=== PATIENT | male | born 1970 | race Caucasian/White ===

== ENCOUNTER 2016-09-11 12:49 | Emergency (ER) | payer MEDICAID ==
[2016-09-11] MEDS ORDERED: Naloxone 0.4 mg/ml Inj (Adult) SC STA (13:13)
--- NOTE | 2016-09-11 13:45 | C.PDOC ---
History Of Present Illness Pt was BIBEMS due to public intoxication. Pt admits to snorting Heroin and drinking alcohol. Time Seen by Provider: 09/11/16 13:07 Chief Complaint (Nursing): Substance Abuse History Per: Patient, EMS Onset/Duration Of Symptoms: Unknown (today) Current Symptoms Are (Timing): Still Present Suicide/Self Injury Attempted (Context): None Modifying Factor(s): Alcohol, Narcotics Severity: Mild Additional History Per: Prior Records Past Medical History Reviewed: Historical Data, Nursing Documentation, Vital Signs Vital Signs: Last Vital Signs Temp 98.1 F 09/11/16 13:50 Pulse 105 H 09/11/16 13:50 Resp 18 09/11/16 13:50 BP 143/94 H 09/11/16 13:50 Pulse Ox 97 09/11/16 13:50 - Medical History PMH: Asthma Family History: States: Unknown Family Hx - Social History Hx Alcohol Use: Yes Hx Substance Use: Yes - Immunization History Hx Tetanus Toxoid Vaccination: No Hx Influenza Vaccination: No Hx Pneumococcal Vaccination: No Review Of Systems Except As Marked, All Systems Reviewed And Found Negative. Constitutional: Negative for: Fever Cardiovascular: Negative for: Chest Pain Respiratory: Negative for: Shortness of Breath Gastrointestinal: Negative for: Vomiting, Abdominal Pain Musculoskeletal: Negative for: Neck Pain Neurological: Negative for: Weakness, Numbness, Seizures, Headache Physical Exam - Physical Exam Appears: No Acute Distress, Other (Appears drowsy) Skin: Normal Color, Warm, Dry Head: Atraumatic, Normacephalic Eye(s): bilateral: PERRL (small, but not pinpoint), EOMI Neck: Normal ROM, No Midline Cervical Tenderness, No Step Off Deformity, Supple Chest: Symmetrical Cardiovascular: Rhythm Regular Respiratory: Normal Breath Sounds, No Accessory Muscle Use Gastrointestinal/Abdominal: Soft, No Tenderness Extremity: Normal ROM, No Deformity Neurological/Psych: Oriented x3, No Normal Speech (slurred), Normal Motor, Normal Sensation Gait: Steady ED Course And Treatment O2 Sat by Pulse Oximetry: 95 Pulse Ox Interpretation: Normal Progress Note: Pt became less drowsy after 0.4mg of Narcan SC. I was then informed by the staff that the pt had walked out during evaluation. Reassessment Condition: Improved Disposition - Disposition Disposition: ELOPEMENT - ER ONLY Disposition Time: 14:05 Condition: UNKNOWN - Clinical Impression Clinical Impression: Heroin abuse, Alcoholic intoxication, Patient left before treatment completed
[2016-09-11 13:53] VITALS: BP 143/94; PULSE 105; RESP 18; TEMP 98.1
[2016-09-11 14:06] VITALS: O2SAT 95
== END 2016-09-11 14:11 | disposition left against medical advice (07) ==
LOC: C.ER 12:49
DX: F10.129 Alcohol abuse with intoxication, unspecified (principal); F11.10 Opioid abuse, uncomplicated; Y90.9 Presence of alcohol in blood, level not specified
CPT/HCPCS: 96372; 99283; J2310

== ENCOUNTER 2016-09-12 21:21 | Inpatient (IN) | payer MEDICAID, OTHER ==
[2016-09-12 22:06] LABS: BASO % 0.3 % (0.0-2.0); EOS # 0.3 K/uL (0.0-0.7); EOS % 3.1 % (0.0-4.0); HEMATOCRIT 41.2 % (35.0-51.0); LYMPH # 3.5 K/uL (1.0-4.3); LYMPH % 34.6 % (20.0-40.0); MEAN CELL VOLUME 84.8 fL (80.0-94.0); MEAN CORPUSCULAR HEMOGLOBIN 27.9 pg (27.0-31.0); MEAN CORPUSCULAR HGB CONC 32.9 g/dL (33.0-37.0); MEAN PLATELET VOLUME 7.5 fL (7.2-11.7); MONO # 0.9 K/uL (0.0-0.8); MONO % 8.9 % (0.0-10.0); RED CELL DISTRIBUTION WIDTH 13.9 % (11.5-14.5); WHITE BLOOD COUNT 10.1 K/uL (4.8-10.8)
[2016-09-12 22:11] LABS: CHLORIDE 95 mmol/L (98-107)
[2016-09-12 22:12] LABS: POTASSIUM 4.3 mmol/L (3.6-5.2); SODIUM 136 mmol/L (132-148)
[2016-09-12 22:14] LABS: ALB/GLOB RATIO 1.2 (1.0-2.1); AST/SGOT 71 U/L (17-59); BILIRUBIN,TOTAL 0.5 mg/dL (0.2-1.3); BLOOD UREA NITROGEN 17 mg/dL (9-20); CARBON DIOXIDE 25 mmol/L (22-30); GFR AFRICAN-AMERICAN > 60; TOTAL PROTEIN 8.1 g/dL (6.3-8.3)
[2016-09-12 22:15] LABS: ALCOHOL SERUM 289 mg/dl (0-10); ALKALINE PHOSPHATASE 111 U/L (38-126); ALT/SGPT 33 U/L (21-72); CALCIUM 8.2 mg/dl (8.6-10.4); GLUCOSE,RANDOM 98 mg/dL (75-110)
[2016-09-12 23:51] LABS: GRANULAR CAST 13 /lpf (0-1); RBC URINE 4 /hpf (0-3); URINE BILIRUBIN NEGATIVE (NEGATIVE); URINE BLOOD 1+ (NEGATIVE); URINE COLOR Yellow (YELLOW); URINE GLUCOSE (UA) NORMAL (Normal); URINE KETONE 1+ mg/dL (NEGATIVE); URINE LEUKOCYTE ESTERASE NEG Leu/uL (Negative); URINE PROTEIN NEGATIVE (NEGATIVE); URINE UROBILINOGEN NORMAL mg/dL (0.2-1.0); WBC URINE 2 /hpf (0-5)
--- NOTE | 2016-09-12 23:57 | C.PDOC ---
History Of Present Illness 46 year old male patient was brought in to the ED accompanied by his girlfriend and family member, expressing suicidal ideation that occurred prior to arrival. Patient noted wanting to hurt himself and reported alcohol and heroin abuse. Patient unable to answer any further questions second to ingestion. Patient initially required 4 point restraint and after a short period of time restraint was removed. Chief Complaint (Nursing): Psychiatric Evaluation History Per: Patient History/Exam Limitations: intoxication (Alcohol and Heroin abuse) Onset/Duration Of Symptoms: Hrs Current Symptoms Are (Timing): Still Present Modifying Factor(s): Alcohol, Narcotics (Heroin) Severity: Mild Past Medical History Reviewed: Historical Data, Nursing Documentation, Vital Signs Vital Signs: Last Vital Signs Temp 97.8 F 09/12/16 21:43 Pulse 112 H 09/13/16 01:38 Resp 18 09/13/16 04:26 BP 136/78 09/13/16 01:38 Pulse Ox 97 09/13/16 01:38 - Medical History PMH: Asthma Family History: States: Unknown Family Hx - Social History Hx Alcohol Use: Yes Hx Substance Use: Yes (heroin) - Immunization History Hx Tetanus Toxoid Vaccination: No Hx Influenza Vaccination: No Hx Pneumococcal Vaccination: No Review Of Systems Review Of Systems: ROS cannot be obtained secondary to pt's inabilty to answer questions. (second to ingestion) Psych: Positive for: Suicidal ideation Physical Exam - Physical Exam Appears: Non-toxic, No Acute Distress Skin: Warm, Dry Head: Atraumatic, Normacephalic Eye(s): bilateral: Normal Inspection Cardiovascular: Rhythm Regular, No Murmur Respiratory: No Rales, No Rhonchi, No Wheezing, Other (Maintain airway) Gastrointestinal/Abdominal: Soft, No Tenderness Neurological/Psych: No Normal Speech (Slurred speech. Mumbling ), Other (Good eye contact) ED Course And Treatment - Laboratory Results Result Diagrams: 09/12/16 21:59 09/12/16 21:59 O2 Sat by Pulse Oximetry: 95 (Room air) Pulse Ox Interpretation: Normal Medical Decision Making Medical Decision Making: Plans: -1:1 OBS -Reassess and disposition Disposition - Disposition Disposition: HOSPITALIZED Disposition Time: 02:45 Condition: GOOD - Clinical Impression Clinical Impression: Depression, Heroin abuse - Scribe Statement The provider has reviewed the documentation as recorded by the Scribe Yanique moreira All medical record entries made by the Scribe were at my direction and personally dictated by me. I have reviewed the chart and agree that the record accurately reflects my personal performance of the history, physical exam, medical decision making, and the department course for this patient. I have also personally directed, reviewed, and agree with the discharge instructions and disposition.
[2016-09-13 05:10] VITALS: O2SAT 95
--- NOTE | 2016-09-13 10:49 | PCM.PSYCH ---
Initial Psychiatric Evaluation - Initial Psychiatric Evaluation Type of Admission: Voluntary Legal Status: Capacity Chief Complaint (in patient's own words): "I'm thinking about committing suicide" Patient's Reaction to Hospitalization: positive History of Present Illness and Precipitating Events: Pt is a 46 yo HM who was admitted for depression and suicidal ideation. Pt is single, without children, is unemployed, lives at a "program house." Pt complains of depressed mood and suicidal ideation with plan of overdosing or jumping off a building, that began a few days ago. Pt states he's had suicidal ideation in the past with one suicide attempt when he was 18 yo, took pills. Pt complains of feeling guilty, tired, and with decreased appetite. Reports auditory and visual hallucinations in the past (spirits telling him to get out of the way), but not currently. Currently he is reporting paranoia and persecutory delusions that people are following him. Pt also reports intermittent heroin use for 13 years. States he recently relapsed after 2 years of sobriety. States he does not know why he began using again. Currently uses 10 bags per day, sniffs. Pt also admits to drinking 3-5, 22 oz bottles of beer and 1-2 pints of liquor per day. Denies seizures, but reports DT in the past. History of 3 previous detox and 2 rehabs. Pt denies other drug use including cocaine, cannabis, benzodiazepines, and PCP. Pt complains of withdrawal symptoms shakes, feeling hot and cold, diaphoresis, restlessness, anxiety and back pain. Denies abdominal pain, nausea, vomiting, diarrhea, constipation, rhinorrhea, palpitations, paranoia, and homicidal ideation. Psych Hx: Depression, Anxiety, Suicide Attempt, Opioid use disorder, Alcohol use disorder Family Psych Hx: Father- alcohol, cocaine, heroin PMHx: Asthma, DM Meds: Unable to obtain Legal issues: currently on probation for possession charge Current Medications: Active Medications Generic Name Dose Route Start Last Admin Trade Name Freq PRN Reason Stop Dose Admin Ibuprofen 600 mg 09/13/16 06:06 09/13/16 06:12 Motrin Tab PO 600 mg Q6H PRN Administration Pain, moderate (4-7) Pneumococcal Polyvalent Vaccine 0.5 ml 09/16/16 10:00 Pneumovax 23 Vaccine IM 09/16/16 10:01 .ONCE ONE Past Psychiatric History - Past Psychiatric History Previous Treatment History: Inpatient Pertinent Medical Hx (Current Medical&Sleep Prob, Allergies): Allergies Allergy/AdvReac Type Severity Reaction Status Date / Time No Known Allergies Allergy Verified 09/11/16 13:11 Unobtainable 09/11/16 Review of Systems - Review of Systems All systems: reviewed and no additional remarkable complaints except - Constitutional Constitutional: Chills, Sweats, Malaise - EENT Nose/Mouth/Throat: absent: Nasal Discharge - Gastrointestinal Gastrointestinal: Excessive Flatus. absent: Constipation, Cramping, Diarrhea, Nausea, Vomiting - Neurological Neurological: absent: Confusion, Dizziness, Tremor - Psychiatric Psychiatric: Abnormal Sleep Pattern, Anxiety, Change in Appetite, Depression, Suicidal Ideation. absent: Difficulty Concentrating, Hallucinations, Homicidal Ideation, Paranoia Mental Status Examination - Personal Presentation Personal Presentation: Looks stated age Additional comments: disorganized in appearance, unkempt, malodorous, pt with flatulence during examination - Affect Affect: Constricted, Depressed - Motor Activity Motor Activity: Psychomotor Agitation - Reliability in Providing Information Reliability in Providing Information: Fair - Speech Speech: Organized Additional comments: Pt noted to have juvenile speech pattern - Mood Mood: Depressed - Formal Thought Process Formal Thought Process: Delusions, Paranoia - Hallucinations/Delusions Delusions: Persecution - Obsessions/Compulsions Obsessions: No Compulsions: No - Cognitive Functions Orientation: Person, Place, Situation, Time Sensorium: Alert Attention/Concentration: Attentive Abstract Thinking: [place] Estimate of Intelligence: Below average Judgement: Intact, as evidence by: Insight regarding need for hospitalization Memory: Recent intact, as evidence by: Ability to recall events of the day, Remote intact, as evidenced by: Abilit to recall sig. life events - Risk Risk: Suicidal, Withdrawal, Diminished functioning - Strength & Assets Inventory Strength & Assets Inventory: Cooperative - Limitations Limitations: Living alone Additional comments: Unemployed DSM 5 DX - DSM 5 DSM 5 Diagnosis: Major depressive disorder recurrent severe with psychotic features Alcohol use disorder severe Alcohol withdrawal uncomplicated Opiate use disorder severe Opiate withdrawal - Recommended/Plan of Treatment Treatment Recommendations and Plan of Treatment: Major depressive disorder recurrent severe with psychotic features -Paroxetine 10mg PO once daily -Supportive psychotherapy -CBT -attend groups and activities Alcohol use disorder-severe -Librium taper -monitor sx -CBT -attend groups and activities -Refer to program Alcohol withdrawal uncomplicated -CBT -Use AL for abstinence Opioid use disorder-severe -Methadone taper -Start PRN medications -CBT -attend groups and activities Opiate withdrawal -use [place] for abstinence, - Smoking Cessation Smoking Cessation Initiated: No
[2016-09-13] MEDS: Multiple Vitamins Tab PO SCH (11:54)
[2016-09-14] MEDS: Multiple Vitamins Tab PO SCH (09:48)
--- NOTE | 2016-09-14 13:38 | PCM.PYCHPN ---
Psychiatric Progress Note - Psychiatric Progress Note Patient seen today, length of contact: 15 min Patient Chief Complaint: I'll feeling irritable Problems Identified/Issues Discussed: Patient seen and evaluated, chart reviewed and discussed with the nurse. Patient reports irritability and agitation but he remained isolated and withdrawn. He still reports withdrawal symptoms including nausea, joint pains, abdominal cramps, anxiety, and sweating. He reports of persecutory delusions. He is taking medication and denied any side effects. Supportive therapy and psychoeducation were given Medication Change: Yes (methadone taper) Medical Record Reviewed: Yes Mental Status Examination - Cognitive Function Orientation: Person, Place, Situation, Time Memory: Intact Attention: WNL Concentration: Poor Association: WNL Fund of Knowledge: Poor - Mood Mood: Depressed, Anxious - Affect Affect: Constricted, Depressed - Speech Speech: Soft - Formal Thought Process Formal Thought Process: Delusions, Paranoia - Suicidal Ideation Suicidal Ideation: No - Homicidal Ideation Homicidal Ideation: No Goal/Treatment Plan - Goal/Treatment Plan Need for Continued Stay: Discharge may exacerbated symptoms, Severe functional impairment Progress Toward Problem(s) and Goals/Treatment Plan: Major depressive disorder recurrent severe with psychotic features -Paroxetine 10mg PO once daily -gabapentin 300 mg by mouth 3 times a day -Trazodone 50 mg by mouth daily at bedtime -Supportive psychotherapy -CBT -attend groups and activities Alcohol use disorder-severe -Librium taper -monitor sx -CBT -attend groups and activities -Refer to program Alcohol withdrawal uncomplicated -CBT -Use [place] for abstinence Opioid use disorder-severe -Methadone taper -PRN medications -CBT -attend groups and activities Opiate withdrawal -use [place] for abstinence, - Smoking Cessation Smoking Cessation Initiated: No
[2016-09-15] MEDS: Multiple Vitamins Tab PO SCH (10:13)
--- NOTE | 2016-09-15 11:16 | PCM.PYCHPN ---
Psychiatric Progress Note - Psychiatric Progress Note Patient seen today, length of contact: 15 min Patient Chief Complaint: I'll feeling irritable Problems Identified/Issues Discussed: Patient seen and evaluated, chart reviewed and discussed with the nurse. As per the staff patient still reporting withdrawal symptoms including nausea, anxiety and cramps and sweating. This reported depressed mood and at times feelings of hopelessness and helplessness. He remained isolative and withdrawn. He is taking medication and denied any side effects. Supportive therapy and psychoeducation were given Medication Change: Yes (methadone taper, increase paxil) Medical Record Reviewed: Yes Mental Status Examination - Cognitive Function Orientation: Person, Place, Situation, Time Memory: Intact Attention: WNL Concentration: Poor Association: WNL Fund of Knowledge: Poor - Mood Mood: Depressed, Anxious - Affect Affect: Constricted, Depressed - Speech Speech: Soft - Formal Thought Process Formal Thought Process: Delusions, Paranoia - Suicidal Ideation Suicidal Ideation: No - Homicidal Ideation Homicidal Ideation: No Goal/Treatment Plan - Goal/Treatment Plan Need for Continued Stay: Discharge may exacerbated symptoms, Severe functional impairment Progress Toward Problem(s) and Goals/Treatment Plan: Major depressive disorder recurrent severe with psychotic features -Paroxetine 20mg PO once daily -gabapentin 300 mg by mouth 3 times a day -Trazodone 50 mg by mouth daily at bedtime -Supportive psychotherapy -CBT -attend groups and activities Alcohol use disorder-severe -Librium taper -monitor sx -CBT -attend groups and activities -Refer to program Alcohol withdrawal uncomplicated -CBT -Use [place] for abstinence Opioid use disorder-severe -Methadone taper -PRN medications -CBT -attend groups and activities Opiate withdrawal -use [place] for abstinence, - Smoking Cessation Smoking Cessation Initiated: No
[2016-09-16] MEDS ORDERED: Pneumococcal 23-Valent Vaccine IM ONE (10:00)
[2016-09-16] MEDS: Multiple Vitamins Tab PO SCH (10:51)
--- NOTE | 2016-09-16 15:24 | PCM.PYCHPN ---
Psychiatric Progress Note - Psychiatric Progress Note Patient seen today, length of contact: 15 min Patient Chief Complaint: I am feeling anxious Problems Identified/Issues Discussed: Patient seen and evaluated, chart reviewed and discussed with the nurse. Today patient reports of anxiety, frustration and irritability. He still reporting depressed mood and at times feelings of hopelessness and helplessness. He reports somewhat improvement in his withdrawal symptoms, but he still reports nausea, joint pains, abdominal cramps, anxiety, and sweating. He reports of persecutory delusions. He is taking medication and denied any side effects. Supportive therapy and psychoeducation were given Medication Change: Yes (methadone taper, increase gabapentin, increase trazodone , ) Medical Record Reviewed: Yes Mental Status Examination - Cognitive Function Orientation: Person, Place, Situation, Time Memory: Intact Attention: WNL Concentration: Poor Association: WNL Fund of Knowledge: Poor - Mood Mood: Depressed, Anxious - Affect Affect: Constricted, Depressed - Speech Speech: Soft - Formal Thought Process Formal Thought Process: Delusions, Paranoia - Suicidal Ideation Suicidal Ideation: No - Homicidal Ideation Homicidal Ideation: No Goal/Treatment Plan - Goal/Treatment Plan Need for Continued Stay: Discharge may exacerbated symptoms, Severe functional impairment Progress Toward Problem(s) and Goals/Treatment Plan: Major depressive disorder recurrent severe with psychotic features -Paroxetine 10mg PO once daily -gabapentin 300 mg by mouth 3 times a day -Trazodone 50 mg by mouth daily at bedtime -Supportive psychotherapy -CBT -attend groups and activities Alcohol use disorder-severe -Librium taper -monitor sx -CBT -attend groups and activities -Refer to program Alcohol withdrawal uncomplicated -CBT -Use [place] for abstinence Opioid use disorder-severe -Methadone taper -PRN medications -CBT -attend groups and activities Opiate withdrawal -use [place] for abstinence,
[2016-09-17] MEDS: Multiple Vitamins Tab PO SCH (11:06)
--- NOTE | 2016-09-17 18:42 | PCM.PYCHPN ---
Psychiatric Progress Note - Psychiatric Progress Note Patient seen today, length of contact: 16 min Patient Chief Complaint: I'll feeling depressed and suicidal Problems Identified/Issues Discussed: Patient seen and evaluated, chart reviewed and discussed with the nurse. Today patient states that he is feeling very depressed and suicidal. However as per the staff remained calm and cooperative and has been attending groups and meetings. He reports improvement in the withdrawal symptoms but reports abdominal cramps, anxiety and sweating. He is taking medication and denied any side effects. Supportive therapy and psychoeducation were given Medication Change: Yes (methadone taper, increase Paxil) Medical Record Reviewed: Yes Mental Status Examination - Cognitive Function Orientation: Person, Place, Situation, Time Memory: Intact Attention: WNL Concentration: Poor Association: WNL Fund of Knowledge: Poor - Mood Mood: Depressed, Anxious - Affect Affect: Constricted, Depressed - Speech Speech: Soft - Formal Thought Process Formal Thought Process: Paranoia - Suicidal Ideation Suicidal Ideation: Yes - Homicidal Ideation Homicidal Ideation: No Goal/Treatment Plan - Goal/Treatment Plan Need for Continued Stay: Discharge may exacerbated symptoms, Severe functional impairment Progress Toward Problem(s) and Goals/Treatment Plan: Major depressive disorder recurrent severe with psychotic features -Paroxetine 30 mg PO once daily -Gabapentin 400 mg by mouth 3 times a day -Trazodone 100 mg by mouth daily at bedtime -Supportive psychotherapy -CBT -attend groups and activities Alcohol use disorder-severe -Librium taper -monitor sx -CBT -attend groups and activities -Refer to program Alcohol withdrawal uncomplicated -CBT -Use [place] for abstinence Opioid use disorder-severe -Methadone taper -PRN medications -CBT -attend groups and activities Opiate withdrawal -use [place] for abstinence, - Smoking Cessation Smoking Cessation Initiated: No
[2016-09-18] MEDS: Multiple Vitamins Tab PO SCH (09:44)
--- NOTE | 2016-09-18 13:18 | PCM.PYCHPN ---
Psychiatric Progress Note - Psychiatric Progress Note Patient seen today, length of contact: 16 min Patient Chief Complaint: "I need an HIV test and more pain meds" Problems Identified/Issues Discussed: The pt is seen, chart reviewed, case discussed with staff. The pt is compliant with medications and reports no side-effects. Somewaht med-seeking. Claims he has muscle nd back pain. Symptoms are improving but needs more time to stabilize. After care discussed, support and psychoeducation given. MT and CBT used briefly. Medication Change: Yes (flexeril added) Medical Record Reviewed: Yes Mental Status Examination - Cognitive Function Orientation: Person, Place, Situation, Time Memory: Intact Attention: WNL Concentration: Poor Association: WNL Fund of Knowledge: Poor - Mood Mood: Depressed, Anxious - Affect Affect: Constricted - Speech Speech: Soft - Formal Thought Process Formal Thought Process: Paranoia - Suicidal Ideation Suicidal Ideation: No - Homicidal Ideation Homicidal Ideation: No Goal/Treatment Plan - Goal/Treatment Plan Need for Continued Stay: Discharge may exacerbated symptoms, Severe functional impairment Progress Toward Problem(s) and Goals/Treatment Plan: Continue medications Support and psychoeducation daily Attend groups and activities daily After care planning HIV ordered Add flexeril for spasms
[2016-09-19 07:45] VITALS: RESP 18
[2016-09-19] MEDS: Multiple Vitamins Tab PO SCH (09:15)
--- NOTE | 2016-09-19 17:13 | PCM.PYCHPN ---
Psychiatric Progress Note - Psychiatric Progress Note Patient seen today, length of contact: 16 min Patient Chief Complaint: "I have pain" Problems Identified/Issues Discussed: The pt is seen, chart reviewed, case discussed with staff. The pt is compliant with medications and reports no side-effects. Symptoms are improving but needs more time to stabilize. After care discussed, leaving tomorrow Still tachy but no withdrawal sxs elicited. TSH ordered, inderal started (plus, he is anxious) [place] and CBT used briefly. Medication Change: Yes (flexeril added) Medical Record Reviewed: Yes Mental Status Examination - Cognitive Function Orientation: Person, Place, Situation, Time Memory: Intact Attention: WNL Concentration: Poor Association: WNL Fund of Knowledge: Poor - Mood Mood: Depressed, Anxious - Affect Affect: Constricted - Speech Speech: Soft - Formal Thought Process Formal Thought Process: Paranoia - Suicidal Ideation Suicidal Ideation: No - Homicidal Ideation Homicidal Ideation: No Goal/Treatment Plan - Goal/Treatment Plan Need for Continued Stay: Discharge may exacerbated symptoms, Severe functional impairment Progress Toward Problem(s) and Goals/Treatment Plan: Continue medications Support and psychoeducation daily Attend groups and activities daily After care planning HIV ordered, cmp and TSH Add inderal. Estimated Date of D/C: 09/20/16 If changed, why: or 09/21
[2016-09-20 08:21] LABS: CHLORIDE 101 mmol/L (98-107); POTASSIUM 4.3 mmol/L (3.6-5.2); SODIUM 138 mmol/L (132-148)
[2016-09-20 08:23] LABS: ALB/GLOB RATIO 1.1 (1.0-2.1); ALKALINE PHOSPHATASE 81 U/L (38-126); AST/SGOT 35 U/L (17-59); BILIRUBIN,TOTAL 0.2 mg/dL (0.2-1.3); CARBON DIOXIDE 29 mmol/L (22-30); GFR AFRICAN-AMERICAN > 60
[2016-09-20 08:24] LABS: ALT/SGPT 23 U/L (21-72); BLOOD UREA NITROGEN 11 mg/dL (9-20); CALCIUM 8.4 mg/dl (8.6-10.4); GLUCOSE,RANDOM 114 mg/dL (75-110)
[2016-09-20 08:52] LABS: THYROID STIMULATING HORMONE 1.91 mIU/L (0.46-4.68)
[2016-09-20 09:25] VITALS: BP 106/75; PULSE 94; TEMP 98.5
[2016-09-20] MEDS: Multiple Vitamins Tab PO SCH (09:25)
--- NOTE | 2016-09-20 09:51 | PCM.PYCHDC ---
Mental Status Examination - Mental Status Examination Orientation: Person, Place, Situation, Time Memory: Intact Mood: Neutral Affect: Constricted Speech: Soft Attention: WNL Concentration: WNL Association: WNL Fund of Knowledge: WNL Formal Thought Process: No Impairment Description of patient's judgement and insight: GOOD, FAIR Psychotic Thoughts and Behaviors: Denies any AVH Suicidal Ideation: No Current Homicidal Ideation?: No Discharge Summary - Discharge Note Reason for Hospitalization: Pt is a 46 yo HM who was admitted for depression and suicidal ideation. Pt is single, without children, is unemployed, lives at a "program house." Pt complains of depressed mood and suicidal ideation with plan of overdosing or jumping off a building, that began a few days ago. Pt states he's had suicidal ideation in the past with one suicide attempt when he was 18 yo, took pills. Pt complains of feeling guilty, tired, and with decreased appetite. Reports auditory and visual hallucinations in the past (spirits telling him to get out of the way), but not currently. Currently he is reporting paranoia and persecutory delusions that people are following him. Pt also reports intermittent heroin use for 13 years. States he recently relapsed after 2 years of sobriety. States he does not know why he began using again. Currently uses 10 bags per day, sniffs. Pt also admits to drinking 3-5, 22 oz bottles of beer and 1-2 pints of liquor per day. Denies seizures, but reports DT in the past. History of 3 previous detox and 2 rehabs. Pt denies other drug use including cocaine, cannabis, benzodiazepines, and PCP. Pt complains of withdrawal symptoms shakes, feeling hot and cold, diaphoresis, restlessness, anxiety and back pain. Denies abdominal pain, nausea, vomiting, diarrhea, constipation, rhinorrhea, palpitations, paranoia, and homicidal ideation. Laboratory Data: Abnormal Lab Results 09/18/16 09/20/16 17:31 07:40 Sodium 138 Potassium 4.3 Chloride 101 Carbon Dioxide 29 Anion Gap 13 BUN 11 Creatinine 0.7 L Est GFR ( Amer) > 60 Est GFR (Non-Af Amer) > 60 Random Glucose 114 H Calcium 8.4 L Total Bilirubin 0.2 AST 35 ALT 23 Alkaline Phosphatase 81 Total Protein 7.0 Albumin 3.7 Globulin 3.3 Albumin/Globulin Ratio 1.1 TSH 3rd Generation 1.91 HIV 1&2 Antibody Screen Negative Consultations:: List each consultation separately and include: 1. Reason for request. 2. Findings. 3. Follow-up Summary of Hospital Course include:: 1. Description of specific treatment plan utilized for patients during their course of treatmen. 2. Summarize the time- course for resolution of acute symptoms and/or regressed behaviors. 3. Describe issues identified and worked on during hospitalization. 4. Describe medication utilized. 5. Describe medical problems identified and treated. 6. Reassessment of suicide risk Summary of Hospital Course: During the course of his stay, patient (pt) started progressively improving and he no longer remained irritable, depressed, and suicidal. His mood and anxiety were improved and he started attending groups and meetings and started socializing. Patient denied any feelings of hopelessness, helplessness, and worthlessness, denied any problem with the sleep or appetite, denied suicidal ideation or homicidal ideation. Pt denied any auditory or visual hallucinations. Some changes were made in his current medications and patient was discharged on following medications. He tolerated these medications very well and denied any side effects. - Final Diagnosis (DSM 5) Condition upon Discharge: GOOD DSM 5: Major depressive disorder recurrent severe with psychotic features Alcohol use disorder-severe Alcohol withdrawal uncomplicated Opioid use disorder-severe Opiate withdrawal Disposition: HOME/ ROUTINE Follow-up Treatment Plan: Education: Pt was educated and counseled about the risks and benefits of taking and not taking medications. Pt was educated and counseled about the risks of drinking and abusing drugs. Pt was educated and counseled to go to the ER or call 911 if pt develop suicidal ideation or homicidal ideation, worsening of symptoms or severe side effects of the meds. Prescriptions/Medication Reconciliation: traZODone [Desyrel] 100 mg PO HS PRN #30 tab PRN Reason: Insomnia Propranolol [Propranolol HCl] 10 mg PO DAILY #60 tab Gabapentin [Neurontin] 400 mg PO TID #90 cap PARoxetine [Paxil] 30 mg PO QAM #30 tab - Smoking Cessation Smoking Cessation Medication prescribed: No - Antipsychotic Medications Pt discharged on 2 or more routine antipsychotic medications: No
== END 2016-09-20 11:10 | disposition home or self-care (01) | DRG 744 ==
LOC: C.ER 21:21 → C.9OBSV 21:58 → OBSVTOIN 09-13 02:57 → C.5E 09-13 03:05
PROVIDERS: ADMIT Psychiatry & Neurology Psychiatry; ATTEND Psychiatry & Neurology Psychiatry
PROC: HZ83ZZZ Medication Management for Substance Abuse Treatment, Antabuse (ICD-10-PCS; principal; 2016-09-13)
PROC: HZ2ZZZZ Detoxification Services for Substance Abuse Treatment (ICD-10-PCS; 2016-09-13)
PROC: HZ81ZZZ Medication Management for Substance Abuse Treatment, Methadone Maintenance (ICD-10-PCS; 2016-09-13)
PROC: GZ58ZZZ Individual Psychotherapy, Cognitive-Behavioral (ICD-10-PCS; 2016-09-13)
PROC: GZ56ZZZ Individual Psychotherapy, Supportive (ICD-10-PCS; 2016-09-13)
DX: F10.239 Alcohol dependence with withdrawal, unspecified (principal); F33.3 Major depressive disorder, recurrent, severe with psychotic symptoms; R45.851 Suicidal ideations; F11.23 Opioid dependence with withdrawal; E11.9 Type 2 diabetes mellitus without complications; J45.909 Unspecified asthma, uncomplicated; F41.9 Anxiety disorder, unspecified; Z79.899 Other long term (current) drug therapy

== ENCOUNTER 2016-09-23 21:16 | Observation (INO) | payer MEDICAID, OTHER ==
[2016-09-23] MEDS ORDERED: Sodium Chloride 0.9% 1,000 ML IV ONE (21:38)
--- NOTE | 2016-09-23 21:43 | C.PDOC ---
History Of Present Illness 46 year old male brought to the ED by ambulance after he was found lying outside , apparently after using heroin. 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 Time Seen by Provider: 09/23/16 21:27 Chief Complaint (Nursing): Substance Abuse History Per: Patient Onset/Duration Of Symptoms: Hrs Current Symptoms Are (Timing): Still Present Suicide/Self Injury Attempted (Context): None Modifying Factor(s): Narcotics Past Medical History Reviewed: Historical Data, Nursing Documentation, Vital Signs Vital Signs: Last Vital Signs Temp 98 F 09/23/16 23:04 Pulse 116 H 09/23/16 23:04 Resp 20 09/23/16 23:04 BP 141/84 09/23/16 23:04 Pulse Ox 94 L 09/23/16 23:17 - Medical History PMH: Asthma, Diabetes - [facility] Procedures DETOXIFICATION SERVICES FOR SUBSTANCE ABUSE TREATMENT (09/13/16) INDIVIDUAL PSYCHOTHERAPY, COGNITIVE-BEHAVIORAL (09/13/16) INDIVIDUAL PSYCHOTHERAPY, SUPPORTIVE (09/13/16) MEDS MGMT FOR SUBSTANCE ABUSE TREATMENT, ANTABUSE (09/13/16) MEDS MGMT FOR SUBSTANCE ABUSE TREATMENT, METHADONE MAINT (09/13/16) Family History: States: No Known Family Hx - Social History Hx Alcohol Use: Yes Hx Substance Use: Yes - Immunization History Hx Tetanus Toxoid Vaccination: No Hx Influenza Vaccination: No Hx Pneumococcal Vaccination: No Review Of Systems Review Of Systems: ROS cannot be obtained secondary to pt's inabilty to answer questions. Physical Exam - Physical Exam Appears: Non-toxic, Other (under influence of heroin, agitated, grunting) Skin: Normal Color, Warm, Dry, Other (+Flushed face) Head: Atraumatic, Normacephalic Eye(s): bilateral: Other (pinpoint pupils B/L) Oral Mucosa: Moist Neck: Normal, Normal ROM Cardiovascular: Rhythm Regular Respiratory: Normal Breath Sounds, No Accessory Muscle Use, No Rales, No Rhonchi , No Wheezing Gastrointestinal/Abdominal: Normal Exam, Bowel Sounds, Soft, No Tenderness Extremity: Normal ROM, No Deformity, No Swelling, Other (+Track pierre on B/L extremities) Neurological/Psych: Other (awake, but agitated, moving all 4 extremities spontaneously) ED Course And Treatment - Laboratory Results Result Diagrams: 09/23/16 21:47 09/23/16 22:09 O2 Sat by Pulse Oximetry: 94 (Ra) Pulse Ox Interpretation: Normal Progress Note: Blood work, UA, UDS ordered. Patient given IV Ns bolus, placed on county coroner. 11:10pm- Patient very agitated, yelling & screaming, currently awake & alert. Will order Haldol and Ativan IM. Reevaluation Time: 00:45 Reassessment Condition: Improved (Patient sleeping comfortably, arousable to verbal stimuli.) Disposition - Disposition Disposition Time: 01:00 Condition: STABLE - Clinical Impression Clinical Impression: Heroin dependence - Scribe Statement The provider has reviewed the documentation as recorded by the Scribe Royer Sotomayor. Provider Attestation: All medical record entries made by the Scribe were at my direction and personally dictated by me. I have reviewed the chart and agree that the record accurately reflects my personal performance of the history, physical exam, medical decision making, and the department course for this patient. I have also personally directed, reviewed, and agree with the discharge instructions and disposition. Physician Patient Turnover Patient Signed Over To: Margy Goodwin Handoff Comments: Patient signed out pending reassessment, sobriety.
[2016-09-23 21:52] LABS: BASO # 0.1 K/uL (0.0-0.2); BASO % 0.9 % (0.0-2.0); EOS # 0.2 K/uL (0.0-0.7); EOS % 1.7 % (0.0-4.0); HEMATOCRIT 41.8 % (35.0-51.0); LYMPH # 2.4 K/uL (1.0-4.3); LYMPH % 27.2 % (20.0-40.0); MEAN CELL VOLUME 86.2 fL (80.0-94.0); MEAN CORPUSCULAR HEMOGLOBIN 28.4 pg (27.0-31.0); MEAN CORPUSCULAR HGB CONC 32.9 g/dL (33.0-37.0); MEAN PLATELET VOLUME 7.8 fL (7.2-11.7); MONO # 0.8 K/uL (0.0-0.8); MONO % 8.9 % (0.0-10.0); RED CELL DISTRIBUTION WIDTH 14.4 % (11.5-14.5); WHITE BLOOD COUNT 8.8 K/uL (4.8-10.8)
[2016-09-23] MEDS ORDERED: DiphenhydrAMINE 50 mg/ml Inj IVP STA (22:00)
[2016-09-23] MEDS ORDERED: Sodium Chloride 0.9% 1,000 ML ONE (22:14)
[2016-09-23] MEDS ORDERED: DiphenhydrAMINE 50 mg/ml Inj ONE (22:14)
[2016-09-23 22:20] LABS: CHLORIDE 98 mmol/L (98-107); SODIUM 137 mmol/L (132-148)
[2016-09-23 22:22] LABS: BILIRUBIN,TOTAL 0.5 mg/dL (0.2-1.3); CARBON DIOXIDE 24 mmol/L (22-30); GFR AFRICAN-AMERICAN > 60
[2016-09-23 22:23] LABS: ALB/GLOB RATIO 1.2 (1.0-2.1); ALCOHOL SERUM 166 mg/dl (0-10); ALKALINE PHOSPHATASE 105 U/L (38-126); ALT/SGPT 39 U/L (21-72); AST/SGOT 56 U/L (17-59); BLOOD UREA NITROGEN 15 mg/dL (9-20); CALCIUM 7.6 mg/dl (8.6-10.4); GLUCOSE,RANDOM 99 mg/dL (75-110); TOTAL PROTEIN 7.9 g/dL (6.3-8.3)
[2016-09-23 22:26] LABS: POTASSIUM 4.2 mmol/L (3.6-5.2)
[2016-09-24 04:45] VITALS: RESP 16
[2016-09-24 06:06] VITALS: BP 102/65; PULSE 72; TEMP 97.5; O2SAT 98
== END 2016-09-24 06:08 | disposition home or self-care (01) ==
LOC: C.ER 21:16 → C.9OBSV 23:01
PROVIDERS: ADMIT Emergency Medicine; ATTEND Emergency Medicine
DX: F11.20 Opioid dependence, uncomplicated (principal); F10.120 Alcohol abuse with intoxication, uncomplicated; Y90.6 Blood alcohol level of 120-199 mg/100 ml
CPT/HCPCS: 80053; 80320; 82948; 85025; 96361; 96372; 96374; 99285; G0378; J1200; J1630; J2060; J7040

== ENCOUNTER 2016-09-29 21:05 | Inpatient (IN) | payer MEDICAID, OTHER ==
[2016-09-29] MEDS ORDERED: Sodium Chloride 0.9% 1,000 ML IV ONE (23:01)
--- NOTE | 2016-09-29 23:05 | C.PDOC ---
History Of Present Illness 46 y/o male presents to emergency department with complaint of acute intoxication. Patient he took too much heroin tonight and also reports alcohol use. Denies any other medical complaints, suicidal ideation, or homicidal ideation. Time Seen by Provider: 09/29/16 22:08 Chief Complaint (Nursing): Psychiatric Evaluation History Per: Patient History/Exam Limitations: no limitations Current Symptoms Are (Timing): Still Present Modifying Factor(s): Alcohol, Narcotics Associated Symptoms: denies: Suicidal Thoughts, Suicidal Plan Recent travel outside of the [place]: No Past Medical History Reviewed: Historical Data, Nursing Documentation, Vital Signs Vital Signs: Last Vital Signs Temp 97.8 F 09/29/16 23:38 Pulse 76 09/29/16 23:38 Resp 15 09/29/16 23:38 BP 119/64 09/29/16 23:38 Pulse Ox 95 09/29/16 23:57 - Medical History PMH: Asthma, Diabetes - [facility] Procedures DETOXIFICATION SERVICES FOR SUBSTANCE ABUSE TREATMENT (09/13/16) INDIVIDUAL PSYCHOTHERAPY, COGNITIVE-BEHAVIORAL (09/13/16) INDIVIDUAL PSYCHOTHERAPY, SUPPORTIVE (09/13/16) MEDS MGMT FOR SUBSTANCE ABUSE TREATMENT, ANTABUSE (09/13/16) MEDS MGMT FOR SUBSTANCE ABUSE TREATMENT, METHADONE MAINT (09/13/16) Family History: States: Unknown Family Hx - Social History Hx Alcohol Use: Yes Hx Substance Use: Yes - Immunization History Hx Tetanus Toxoid Vaccination: No Hx Influenza Vaccination: No Hx Pneumococcal Vaccination: No Review Of Systems Except As Marked, All Systems Reviewed And Found Negative. Constitutional: Negative for: Fever Cardiovascular: Negative for: Chest Pain Respiratory: Negative for: Shortness of Breath Gastrointestinal: Negative for: Vomiting Skin: Negative for: Rash Physical Exam - Physical Exam Appears: Non-toxic, Other (hypotensive, lethargic) Skin: Warm, Dry Head: Atraumatic, Normacephalic Chest: Symmetrical Cardiovascular: Rhythm Regular Respiratory: Normal Breath Sounds, No Rhonchi, No Wheezing Extremity: Normal ROM, Capillary Refill (< 2 sec. ) Neurological/Psych: Oriented x3 ED Course And Treatment - Laboratory Results Result Diagrams: 09/29/16 23:35 09/29/16 23:35 Lab Interpretation: Abnormal Interpretation Of Abnormal: ETOH 209 UDS +opiates and marijuana ECG: Interpreted By Me ECG Rhythm: Sinus Rhythm ECG Interpretation: Normal O2 Sat by Pulse Oximetry: 95 Pulse Ox Interpretation: Normal Progress Note: 11:50 Patient improved. BP now 119/60 after 1 liter normal saline. ED OBSERVATION Date of observation admission: 09/29/16 Time of observation admission: 23:56 - Observation admission statement Patient is being placed in observation because:: Polysubstance abuse with altered mental status - Goals of Observation Goals of observation are:: sobriety - Progress Note Progress Note: 09/30/16 00:44 Patient still sleeping quietly Disposition - Disposition Disposition Time: 00:45 Condition: STABLE - Clinical Impression Clinical Impression: Polysubstance abuse Physician Patient Turnover Patient Signed Over To: Jessie Abdul Handoff Comments: Pending sobriety
[2016-09-29 23:38] LABS: BASO # 0.1 K/uL (0.0-0.2); BASO % 1.3 % (0.0-2.0); EOS # 0.3 K/uL (0.0-0.7); EOS % 4.4 % (0.0-4.0); HEMATOCRIT 35.2 % (35.0-51.0); LYMPH # 2.2 K/uL (1.0-4.3); MEAN CELL VOLUME 85.7 fL (80.0-94.0); MEAN CORPUSCULAR HEMOGLOBIN 28.1 pg (27.0-31.0); MEAN CORPUSCULAR HGB CONC 32.8 g/dL (33.0-37.0); MEAN PLATELET VOLUME 7.8 fL (7.2-11.7); MONO # 0.4 K/uL (0.0-0.8); MONO % 5.2 % (0.0-10.0); NRBC % 0.1 % (0.0-2.0); RED CELL DISTRIBUTION WIDTH 14.4 % (11.5-14.5); WHITE BLOOD COUNT 6.8 K/uL (4.8-10.8)
[2016-09-29 23:40] LABS: URINE BILIRUBIN NEGATIVE (NEGATIVE); URINE BLOOD NEGATIVE (NEGATIVE); URINE COLOR Straw (YELLOW); URINE GLUCOSE (UA) NORMAL (Normal); URINE KETONE NEGATIVE (NEGATIVE); URINE LEUKOCYTE ESTERASE NEG Leu/uL (Negative); URINE PROTEIN NEGATIVE (NEGATIVE); URINE UROBILINOGEN NORMAL mg/dL (0.2-1.0); WBC URINE < 1 /hpf (0-5)
[2016-09-29 23:48] LABS: CHLORIDE 96 mmol/L (98-107); POTASSIUM 3.5 mmol/L (3.6-5.2); SODIUM 134 mmol/L (132-148)
[2016-09-29 23:50] LABS: AST/SGOT 82 U/L (17-59); BILIRUBIN,TOTAL 0.5 mg/dL (0.2-1.3); CARBON DIOXIDE 23 mmol/L (22-30); GFR AFRICAN-AMERICAN > 60
[2016-09-29 23:51] LABS: ALB/GLOB RATIO 1.3 (1.0-2.1); ALCOHOL SERUM 209 mg/dl (0-10); ALKALINE PHOSPHATASE 98 U/L (38-126); ALT/SGPT 44 U/L (21-72); BLOOD UREA NITROGEN 16 mg/dL (9-20); CALCIUM 7.9 mg/dl (8.6-10.4); GLUCOSE,RANDOM 89 mg/dL (75-110); TOTAL PROTEIN 7.3 g/dL (6.3-8.3)
[2016-09-30] MEDS ORDERED: Sodium Chloride 0.9% 1,000 ML IV ONE (01:30)
[2016-09-30] MEDS ORDERED: Sodium Chloride 0.9% 1,000 ML ONE (01:32)
[2016-09-30] MEDS: Aluminum Hydroxide/Magnesium Hydroxide Susp (30 mL) PO PRN (13:54)
--- NOTE | 2016-09-30 15:01 | PCM.PSYCH ---
Initial Psychiatric Evaluation - Initial Psychiatric Evaluation Type of Admission: Voluntary Legal Status: Capacity Chief Complaint (in patient's own words): "I had thoughts of killing myself" Patient's Reaction to Hospitalization: Positive History of Present Illness and Precipitating Events: Pt is seen, chart reviewed, case discussed. Pt is a 46 year old male. He is single and does not have children. Pt is currently living in a Transitional house in [place]. Pt is unemployed and supports himself through disability. Pt reported to hospital with suicidal ideation. Pt has a history of alcohol and opioid use disorder. He reports that he started drinking when he was 30 years old. His longest sobriety period was 2 years. He states that he snorts 10-20 bags of heroin a day. Pt admits to drinking 1-2 pints of Vodka each day. He states he smokes on occasion. Pt has been hospitalized in the past for suicidal ideation and substance abuse and has attended rehab multiple times. A year ago he was receiving mental health therapy at [facility]. Pt was also attending [facility] in [place], but was not compliant with appointments. He denies receiving Suboxone or Methadone outpatient treatment in the past. Pt is currently on probation until this January. He received 3 possesion charges in the past and served senior living time. While in senior living, pt completed [facility] program and a 90 day program at [facility] after being let go. Pt current complaints are unsteady gait, nausea, headache, dizziness, cough and backpain. Pt admits to depression and feelings of worthlessness. Pt denies suicidal ideation at this moment. Pt plan is to attend [facility] after discharge. Pt was counseled on treatment and given information on outpatient programs. Past Psychiatric History: Depression Family Psychiatric History: Denies Family Substance Abuse: Father Past Medical History: Diabetes, Asthma, Hepatitis C Current Medications: Active Medications Generic Name Dose Route Start Last Admin Trade Name Freq PRN Reason Stop Dose Admin Al Hydrox/Mg Hydrox/Simethicone 30 ml 09/30/16 11:00 09/30/16 13:54 Maalox 30 Ml PO 30 ml TID PRN Administration Indigestion / Heartburn Clonidine HCl 0.1 mg 09/30/16 11:00 Catapres PO Q8H PRN COWS Score More or Equal to 5 Gabapentin 300 mg 09/30/16 11:00 09/30/16 11:14 Neurontin PO 300 mg BID ANT Administration Haloperidol 5 mg 09/30/16 10:52 Haldol PO Q1H PRN agitation, max 4x/24h Hydroxyzine HCl 50 mg 09/30/16 10:51 09/30/16 13:55 Atarax PO 50 mg Q6H PRN Administration Anxiety Ibuprofen 600 mg 09/30/16 10:51 09/30/16 11:14 Motrin Tab PO 600 mg Q6H PRN Administration Pain, moderate (4-7) Loperamide HCl 2 mg 09/30/16 11:00 Imodium PO Q8H PRN Diarrhea Methadone HCl 20 mg 09/30/16 11:15 09/30/16 11:21 Methadone PO 10/04/16 11:14 20 mg Q24H ANT Administration Taper Mirtazapine 15 mg 09/30/16 22:00 Remeron PO HS ANT Ondansetron HCl 4 mg 09/30/16 10:49 Zofran Tab PO Q8 PRN Nausea/Vomiting Pneumococcal Polyvalent Vaccine 0.5 ml 10/03/16 10:00 Pneumovax 23 Vaccine IM 10/03/16 10:01 .ONCE ONE Past Psychiatric History - Past Psychiatric History Pertinent Medical Hx (Current Medical&Sleep Prob, Allergies): Allergies Allergy/AdvReac Type Severity Reaction Status Date / Time No Known Allergies Allergy Verified 09/29/16 21:18 Gabapentin [Neurontin] 400 mg PO TID #90 cap 09/20/16 PARoxetine [Paxil] 30 mg PO QAM #30 tab 09/20/16 Propranolol [Propranolol HCl] 10 mg PO DAILY #60 tab 09/20/16 traZODone [Desyrel] 100 mg PO HS PRN #30 tab 09/20/16 Review of Systems - Constitutional Constitutional: Sweats - Gastrointestinal Gastrointestinal: Nausea, Vomiting - Musculoskeletal Musculoskeletal: Back Pain - Neurological Neurological: Dizziness, Headaches - Psychiatric Psychiatric: Abnormal Sleep Pattern, Anhedonia, Anxiety, Depression, Difficulty Concentrating. absent: Homicidal Ideation, Paranoia, Suicidal Ideation - Hematologic/Lymphatic Additional comments: Withdrawal Symtpoms Mental Status Examination - Personal Presentation Personal Presentation: Looks stated age - Affect Affect: Broad, Constricted, Depressed - Motor Activity Motor Activity: Calm - Reliability in Providing Information Reliability in Providing Information: Good - Speech Speech: Organized - Mood Mood: Depressed, Anxious - Formal Thought Process Formal Thought Process: No Impairment - Obsessions/Compulsions Obsessions: No Compulsions: No - Cognitive Functions Orientation: Person, Place, Situation, Time Sensorium: Alert Attention/Concentration: Attentive Judgement: Intact, as evidence by: Insight regarding need for hospitalization Memory: Recent intact, as evidence by: Other, Remote intact, as evidenced by: Other - Risk Risk: Withdrawal, Diminished functioning - Strength & Assets Inventory Strength & Assets Inventory: Cooperative - Limitations Limitations: Living alone DSM 5 DX - DSM 5 DSM 5 Diagnosis: Major Depression Disorder, recurrent, severe, not psychotic r/o substance-induced depression Opioid Use Disorder-severe Opioid Withdrawal Alcohol Use Disorder-severe Personality d/o unspecified - Recommended/Plan of Treatment Treatment Recommendations and Plan of Treatment: Opioid Use Disorder-severe CBT Psychoeducation Supportive therapy, individual therapy Use NC for abstinence Refer to outpatient program Opioid Withdrawal-severe CBT Psychoeducation Supportive therapy, individual therapy Clonidine when necessary Methadone taper Alcohol Use Disorder-severe CBT Psychoeducation Supportive therapy, individual therapy Use NC for abstinence Alcohol Withdrawal Monitor vitals and symptoms No sxs for now Major Depression Disorder r/o substance abuse depression: Remeron for insomnia and depression As needed meds Support and Psychoeducation given Attend groups and activities Atarax for anxiety Haldol for agitation 32 min Projected ELOS: 4 days Prognosis: good with treatment - Smoking Cessation Smoking Cessation Initiated: No
--- NOTE | 2016-09-30 19:11 | CARD ---
APPROVED REPORT EKG Measurement Heart [id number] <Conclusion> Normal sinus rhythm Normal ECG
--- NOTE | 2016-10-01 13:59 | PCM.PYCHPN ---
Psychiatric Progress Note - Psychiatric Progress Note Patient seen today, length of contact: 16 minutes Patient Chief Complaint: "I'm in pain" Problems Identified/Issues Discussed: Pt is seen, chart reviewed, and case discussed Pt is feeling better. Pt had trouble sleeping last night and feels anxious. He complains of body pain and was asking for medication for the pain. Patient was counseled on his treatment. Pt denies any S/I. Aftercare was discussed and patient wants to attend [facility] upon discharge. Support and psychoeducation given. Medication Change: Yes (methadone taper) Medical Record Reviewed: Yes Mental Status Examination - Cognitive Function Orientation: Person, Place, Situation, Time Memory: Intact Attention: WNL Concentration: WNL Association: Loose Fund of Knowledge: Poor - Mood Mood: Depressed, Anxious - Affect Affect: Broad, Constricted, Depressed - Speech Speech: Appropriate - Formal Thought Process Formal Thought Process: No Impairment - Suicidal Ideation Suicidal Ideation: No - Homicidal Ideation Homicidal Ideation: No Goal/Treatment Plan - Goal/Treatment Plan Need for Continued Stay: Severe depression anxiety, Discharge may exacerbated symptoms Progress Toward Problem(s) and Goals/Treatment Plan: Opioid Use Disorder-severe CBT Psychoeducation Supportive therapy, individual therapy Use PA for abstinence Refer to outpatient program Opioid Withdrawal-severe CBT Psychoeducation Supportive therapy, individual therapy Clonidine when necessary Methadone taper Alcohol Use Disorder-severe CBT Psychoeducation Supportive therapy, individual therapy Use PA for abstinence Alcohol Withdrawal Monitor vitals and symptoms No sxs for now Major Depression Disorder r/o substance abuse depression: Remeron for insomnia and depression As needed meds Support and Psychoeducation given Attend groups and activities Atarax for anxiety Haldol for agitation
[2016-10-01] MEDS: Aluminum Hydroxide/Magnesium Hydroxide Susp (30 mL) PO PRN (19:03)
[2016-10-02 07:21] VITALS: O2SAT 99
[2016-10-03] MEDS ORDERED: Pneumococcal 23-Valent Vaccine IM ONE (10:00)
--- NOTE | 2016-10-04 00:44 | PCM.PYCHPN ---
Psychiatric Progress Note - Psychiatric Progress Note Patient seen today, length of contact: 16 minutes Patient Chief Complaint: i worry a lot Problems Identified/Issues Discussed: different types of worry PAWS symptom management Medical Problems: nothing acute Diagnostic Results: reviewed Medication Change: Yes (methadone taper) Medical Record Reviewed: Yes Mental Status Examination - Cognitive Function Orientation: Person, Situation, Time Memory: Intact Attention: WNL Concentration: WNL Association: WNL Fund of Knowledge: WNL - Mood Mood: Depressed, Anxious - Affect Affect: Broad, Constricted, Depressed - Speech Speech: Appropriate - Formal Thought Process Formal Thought Process: No Impairment - Suicidal Ideation Suicidal Ideation: No - Homicidal Ideation Homicidal Ideation: No Goal/Treatment Plan - Goal/Treatment Plan Need for Continued Stay: Severe depression anxiety, Discharge may exacerbated symptoms Progress Toward Problem(s) and Goals/Treatment Plan: symptomm management sobriety insight Estimated Date of D/C: 10/04/16 - Smoking Cessation Smoking Cessation Initiated: No
--- NOTE | 2016-10-04 00:52 | PCM.PYCHPN ---
Psychiatric Progress Note - Psychiatric Progress Note Patient seen today, length of contact: 16 minutes Patient Chief Complaint: ii get depressed on and off but i still worry Problems Identified/Issues Discussed: symptom management PAWS Medical Problems: nothing acute Diagnostic Results: reviewed DSM 5 Symptoms Update: depression improving eating and sleeping better Medication Change: Yes (methadone taper) Mental Status Examination - Cognitive Function Orientation: Place, Situation, Time Memory: Intact Attention: WNL Concentration: WNL Association: WNL Fund of Knowledge: WNL - Mood Mood: Depressed, Anxious - Affect Affect: Broad, Depressed - Speech Speech: Appropriate - Formal Thought Process Formal Thought Process: No Impairment - Suicidal Ideation Suicidal Ideation: No - Homicidal Ideation Homicidal Ideation: No Goal/Treatment Plan - Goal/Treatment Plan Need for Continued Stay: Severe depression anxiety, Discharge may exacerbated symptoms Progress Toward Problem(s) and Goals/Treatment Plan: no longer feeling hopeless Estimated Date of D/C: 10/04/16 - Smoking Cessation Smoking Cessation Initiated: No
--- NOTE | 2016-10-04 00:55 | PCM.PYCHPN ---
Psychiatric Progress Note - Psychiatric Progress Note Patient seen today, length of contact: 16 minutes Patient Chief Complaint: i worry a lot Problems Identified/Issues Discussed: sobriety, different kinds of anxiety Medical Problems: nothing acute Medication Change: Yes (methadone taper) Medical Record Reviewed: Yes Mental Status Examination - Cognitive Function Orientation: Person, Place, Situation, Time Memory: Intact Attention: WNL Concentration: WNL Association: Loose Fund of Knowledge: Poor - Mood Mood: Depressed, Anxious - Affect Affect: Broad, Constricted, Depressed - Speech Speech: Appropriate - Formal Thought Process Formal Thought Process: No Impairment - Suicidal Ideation Suicidal Ideation: No - Homicidal Ideation Homicidal Ideation: No Goal/Treatment Plan - Goal/Treatment Plan Need for Continued Stay: Severe depression anxiety, Discharge may exacerbated symptoms
--- NOTE | 2016-10-04 15:34 | PCM.PYCHPN ---
Psychiatric Progress Note - Psychiatric Progress Note Patient seen today, length of contact: 16 minutes Patient Chief Complaint: "I'm feeling better" Problems Identified/Issues Discussed: Pt is seen, chart reviewed, and case discussed Pt is feeling well. His mood is ok. Pt was insistent on being discharged today because he wants to get his belongings before he goes to [facility] for rehab tomorrow. The importance of going directly from the hospital to rehab was emphasized and patient agreed. Support and psychoeducation given. Medication Change: No Medical Record Reviewed: Yes Mental Status Examination - Cognitive Function Orientation: Person, Place, Situation, Time Memory: Intact Attention: WNL Concentration: WNL Association: Loose Fund of Knowledge: Poor - Mood Mood: Anxious - Affect Affect: Broad - Speech Speech: Appropriate - Formal Thought Process Formal Thought Process: No Impairment - Suicidal Ideation Suicidal Ideation: No - Homicidal Ideation Homicidal Ideation: No Goal/Treatment Plan - Goal/Treatment Plan Need for Continued Stay: Severe depression anxiety, Discharge may exacerbated symptoms Progress Toward Problem(s) and Goals/Treatment Plan: Opioid Use Disorder-severe CBT Psychoeducation Supportive therapy, individual therapy Use VT for abstinence Refer to outpatient program Opioid Withdrawal-severe CBT Psychoeducation Supportive therapy, individual therapy Clonidine when necessary Alcohol Use Disorder-severe CBT Psychoeducation Supportive therapy, individual therapy Use VT for abstinence Alcohol Withdrawal Monitor vitals and symptoms No sxs for now Major Depression Disorder r/o substance abuse depression: Remeron for insomnia and depression As needed meds Support and Psychoeducation given Attend groups and activities Atarax for anxiety Haldol for agitation Estimated Date of D/C: 10/05/16
[2016-10-05 08:08] VITALS: BP 105/75; PULSE 105; RESP 19; TEMP 97.8
--- NOTE | 2016-10-05 08:53 | PCM.PYCHDC ---
Mental Status Examination - Mental Status Examination Orientation: Person, Place, Situation, Time Memory: Intact Mood: Anxious Affect: Constricted Speech: Appropriate Attention: WNL Concentration: WNL Association: WNL Fund of Knowledge: WNL Formal Thought Process: No Impairment Suicidal Ideation: No Current Homicidal Ideation?: No Discharge Summary - Discharge Note Reason for Hospitalization: Suicidal ideation Consultations:: List each consultation separately and include: 1. Reason for request. 2. Findings. 3. Follow-up Summary of Hospital Course include:: 1. Description of specific treatment plan utilized for patients during their course of treatmen. 2. Summarize the time- course for resolution of acute symptoms and/or regressed behaviors. 3. Describe issues identified and worked on during hospitalization. 4. Describe medication utilized. 5. Describe medical problems identified and treated. 6. Reassessment of suicide risk Summary of Hospital Course: On admission: Pt is a 46 year old male. He is single and does not have children. Pt is currently living in a [facility] house in [place]. Pt is unemployed and supports himself through disability. Pt reported to hospital with suicidal ideation. Pt has a history of alcohol and opioid use disorder. He reports that he started drinking when he was 30 years old. His longest sobriety period was 2 years. He states that he snorts 10-20 bags of heroin a day. Pt admits to drinking 1-2 pints of Vodka each day. He states he smokes on occasion. Pt has been hospitalized in the past for suicidal ideation and substance abuse and has attended rehab multiple times. A year ago he was receiving mental health therapy at [facility]. Pt was also attending [facility] in [place], but was not compliant with appointments. He denies receiving Suboxone or Methadone outpatient treatment in the past. Pt is currently on probation until this January. He received 3 possesion charges in the past and served [facility]. While in [facility], pt [facility] and [facility]. Pt current complaints are unsteady gait, nausea, headache, dizziness, cough and backpain. Pt admits to depression and feelings of worthlessness. Pt denies suicidal ideation at this moment. Pt plan is to attend [facility] after discharge. Pt was counseled on treatment and given information on outpatient programs. Past Psychiatric History: Depression Family Psychiatric History: Denies Family Substance Abuse: Father Past Medical History: Diabetes, Asthma, Hepatitis C Hospital course: The pt was admitted and started on treatment with psychotherapy, support, psychoeducation and medications. HI and CBT used. The pt attended groups and activities, as well as milieu therapy. All the risks and benefits of medications are discussed and the patient understood and agreed. After care discussed with the patient. He is accepted to [facility] in [place] where his cousin works, and he left with him. Of note, the pt was extremely med-seeking but redirectable in general. He even wanted to leave a day early but keno writer / runner convinced him to do [id number] to prevent relapse. - Final Diagnosis (DSM 5) Condition upon Discharge: STABLE DSM 5: Major Depression Disorder, recurrent, severe, not psychotic r/o substance-induced depression Opioid Use Disorder-severe Opioid Withdrawal Alcohol Use Disorder-severe Personality d/o unspecified Disposition: REHAB FACILITY/REHAB UNIT Follow-up Treatment Plan: Attend [facility]. Pt left with his cousin who works at [facility] Continue below medications after discharge. Use relapse prevention skills Return to ER or call 911 if suicidal, homicidal or symptoms relapse. Stay away from stress, alcohol and drugs. Prescriptions/Medication Reconciliation: Gabapentin [Neurontin] 300 mg PO BID #60 cap hydrOXYzine HCl [Atarax] 50 mg PO BID PRN #60 tab PRN Reason: Anxiety Mirtazapine [Remeron] 15 mg PO HS #30 tab QUEtiapine [Seroquel] 100 mg PO HS #30 tab - Smoking Cessation Smoking Cessation Medication prescribed: No - Antipsychotic Medications Pt discharged on 2 or more routine antipsychotic medications: No
== END 2016-10-05 07:01 | DRG 430 ==
LOC: C.ER 21:05 → C.9OBSV 23:55 → C.5E 09-30 06:02 → OBSVTOIN 09-30 06:02 → C.5E 10-03 00:01
PROVIDERS: ADMIT Emergency Medicine; ATTEND Psychiatry & Neurology Psychiatry
PROC: GZ3ZZZZ Medication Management (ICD-10-PCS; principal; 2016-09-30)
PROC: HZ2ZZZZ Detoxification Services for Substance Abuse Treatment (ICD-10-PCS; 2016-09-30)
PROC: HZ59ZZZ Individual Psychotherapy for Substance Abuse Treatment, Supportive (ICD-10-PCS; 2016-09-30)
PROC: GZHZZZZ Group Psychotherapy (ICD-10-PCS; 2016-09-30)
PROC: GZ56ZZZ Individual Psychotherapy, Supportive (ICD-10-PCS; 2016-09-30)
DX: F33.2 Major depressive disorder, recurrent severe without psychotic features (principal); F11.23 Opioid dependence with withdrawal; F10.230 Alcohol dependence with withdrawal, uncomplicated; F11.24 Opioid dependence with opioid-induced mood disorder; F10.220 Alcohol dependence with intoxication, uncomplicated; F60.9 Personality disorder, unspecified; E11.9 Type 2 diabetes mellitus without complications; J45.909 Unspecified asthma, uncomplicated; Y90.7 Blood alcohol level of 200-239 mg/100 ml